=== PATIENT | male | born 1960 | race Caucasian/White ===

== ENCOUNTER 2024-07-31 18:18 | Emergency (ER) | payer OTHER ==
[2024-07-31] MEDS ORDERED: Boostrix 0.5 ML (Tdap) VIAL (>/=7 yrs of age) ONE (18:46)
[2024-07-31] MEDS ORDERED: Ibuprofen 600 MG TAB ONE (19:07)
[2024-07-31] MEDS ORDERED: Acetaminophen 325 MG TAB ONE (19:07)
== END 2024-07-31 19:18 | disposition home or self-care (01) ==
LOC: MADERS 18:18
DX: S43.102A Unspecified dislocation of left acromioclavicular joint, initial encounter (principal); F17.220 Nicotine dependence, chewing tobacco, uncomplicated; E11.9 Type 2 diabetes mellitus without complications; Z23 Encounter for immunization; W01.10XA Fall on same level from slipping, tripping and stumbling with subsequent striking against unspecified object, initial encounter
CPT/HCPCS: 36416; 90471; 90715

== ENCOUNTER 2024-09-30 21:06 | Emergency (ER) | payer OTHER ==
[2024-09-30] MEDS ORDERED: Lactated Ringer's 1,000 ML ONE ×2 (21:26→22:02)
[2024-09-30 21:31] LABS: #Lymphocytes 1.4 thou/uL (1.20-3.40); #Monocytes 0.3 thou/uL (0.11-0.59); #Neutrophils 4.7 thou/uL (1.40-6.50); %Basophils 0.8 % (0.0-1.0); %Eosinophils 0.4 % (0.0-10.0); %Lymphocytes 21.3 % (21.0-51.0); %Monocytes 4.4 % (0.0-10.0); %Neutrophils 73.2 % (42.0-75.0); Hematocrit 47.4 % (42.0-52.0); Hemoglobin 14.8 g/dL (14.0-18.0); Mean Corpuscular HGB CONC 31.2 g/dL (32.0-36.0); Mean Corpuscular Hemoglobin 30.1 pg (27.0-31.0); Mean Corpuscular Volume 96.6 fl (78.0-98.0); Mean Platelet Volume 6.6 fL (7.4-10.4); Platelet Count 217 10x3/uL (130-400); RBC Distribution Width 11.1 % (11.5-14.5); Red Blood Cell (RBC) Count 4.91 mill/uL (4.70-6.10); White Blood Cell (WBC) Count 6.4 10x3/uL (4.8-10.8)
[2024-09-30 21:51] LABS: ALT (SGPT) 25 U/L (Less than 45); AST (SGOT) 24 U/L (11-34); Albumin 4.3 g/dL (3.1-4.5); Alkaline Phosphatase 69 U/L (40-110); Anion Gap 26 mmol/L (10-20); BUN (Urea Nitrogen) 14 mg/dL (8.4-25.7); Calc. Creatinine Clearance 0 mL/min (70-130); Calcium 9.2 mg/dL (7.8-10.44); Carbon Dioxide 18 mmol/L (23-31); Chloride 98 mmol/L (98-107); Estimated GFR 94; Globulin 3.2 g/dL (2.4-3.5); Lipase 24 U/L (8-78); Magnesium 2.1 mg/dL (1.6-2.6); Potassium 5.2 mmol/L (3.5-5.1); Protein, Total 7.5 g/dL (5.8-8.1); Sodium 137 mmol/L (136-145)
[2024-09-30 21:52] LABS: Base Excess-Venous -5.5 mmol/L (-2.0 to 3.0); Bicarbonate (HCO3v) 24.5 mmol/L (22.0-28.0); CO2 Tension (PvCO2) 65.5 mmHg (42.0-51.0); Calcium, Ionized 1.24 mmol/L (1.15-1.33); Chloride 101 mmol/L (98-107); Hemoglobin - Calc 16.1 g/dL (14.0-18.0); Potassium 5.2 mmol/L (3.5-5.1); Sodium 139 mmol/L (138-145); T. Carbon Dioxide 26.5 mmol/L (22.0-28.0)
[2024-09-30 21:59] LABS: Critical Call Chemistry ERS.JD @ 2159; Glucose 482 mg/dL (80-115)
[2024-09-30] MEDS ORDERED: Insulin Regular, Human 100 UNIT/ML 10 ML VIAL ONE (22:02)
[2024-09-30] MEDS ORDERED: INSULIN REGULAR IN 0.9 % NACL 100 ML ONE (22:04)
[2024-09-30 22:09] LABS: Bilirubin Negative (Negative); Blood, Urine Negative (Negative); Clarity Clear (Clear); Glucose, Urine (Dipstick) 500 mg/dL (Negative); Ketone, Urine 80 mg/dL (Negative); Leukocyte Negative (Negative); Nitrite Negative (Negative); Protein, Urine (Dipstick) Negative (Neg-Trace); Urobilinogen 0.2 mg/dL (Less than 2); pH, Urine 5.5 (5.0-9.0)
[2024-09-30 22:10] LABS: CAUTI Indications for Culture < 2yrs of age; RBC/HPF None Seen HPF (0-3); Squamous Epithelial None Seen HPF (0-3); WBC/HPF None Seen HPF (0-3)
[2024-09-30 22:11] LABS: Urine Culture Reflex Yes Yes
[2024-09-30] MEDS ORDERED: Sodium Chloride 0.9% 1,000 ML ONE (23:23)
== END 2024-10-01 00:06 | disposition short-term general hospital (02) ==
LOC: MADERS 21:06
DX: E10.10 Type 1 diabetes mellitus with ketoacidosis without coma (principal); F17.220 Nicotine dependence, chewing tobacco, uncomplicated; Z79.899 Other long term (current) drug therapy
CPT/HCPCS: 36416; 80053; 81001; 82010; 82330; 82435; 82803; 83690; 83735; 84132; 84295; 85014; 85025; 87086; 93005; 94760; 96361; 96365; 96366; J1815; J7030; J7120